=== PATIENT | male | born 1970 | race Caucasian/White ===

== ENCOUNTER → 2023-01-21 13:15 | Outpatient (CLI) | payer MEDICARE, SELFPAY ==
[2023-01-21 18:49] LABS: Basophils % 0.4 % (0.1-2.0); Eosinophils # 0.3 K/mm3 (0.0-0.4); Eosinophils % 3.7 % (0.1-12.0); Hematocrit 47.6 % (42.0-52.0); Hemoglobin 15.1 g/dL (14.1-18.0); Lymphocytes # 1.3 K/mm3 (0.7-4.5); Lymphocytes % 17.4 % (10-50); Mean Corpuscular HGB Conc 31.7 g/dL (31.8-35.4); Mean Corpuscular Hemoglobin 31.7 pg (27.0-31.2); Mean Platelet Volume 8.4 fl (7.4-10.4); Monocytes # 0.8 K/mm3 (0.1-1.0); Monocytes % 10.2 % (1.7-9.3); Neutrophils % 68.4 % (37.0-80.0); Platelet Count 264 K/mm3 (142-424); Red Blood Count 4.76 M/mm3 (4.60-6.20); Red Cell Distribution Width 15.6 % (11.5-17.5); White Blood Count 7.3 K/mm3 (4.8-10.8)
[2023-01-21 19:18] LABS: Iron 146 ug/dL (49-181)
[2023-01-21 19:19] LABS: Alanine Aminotransferase 18 U/L (12-78); Albumin Level 4.6 g/dl (3.5-5.0); Albumin/Globulin Ratio 1.4 (1.1-1.8); Alkaline Phosphatase 78 U/L (38-126); Anion Gap 13.8 mEq/L (5-15); Aspartate Amino Transferase 27 U/L (17-59); Bilirubin,Total 0.3 mg/dl (0.2-1.3); Blood Urea Nitrogen 9 mg/dl (9-20); Calcium 9.2 mg/dl (8.4-10.2); Carbon Dioxide 27 mmol/L (22.0-30.0); Chloride 100 mmol/L (98-107); Estimated Glomerular Filt Rate 79 ml/min (>60); GFR (African American) 95 ML/MIN (>60); Globulin 3.3 g/dL (1.3-3.2); Glucose 94 mg/dl (74-100); Potassium 5.8 mmoL/L (3.5-5.1); Sodium 135 mmol/L (136-145); Total Protein,Serum 7.9 g/dl (6.3-8.2)
[2023-01-21 19:23] LABS: Magnesium 1.8 mg/dl (1.6-2.3)
[2023-01-21 19:40] LABS: Troponin I < 0.01 ng/ml (0.00-0.034)
[2023-01-21 19:53] LABS: Ferritin 36.4 ng/ml (17.9-464)
[2023-01-21 20:06] LABS: Thyroid Stimulating Hormone 3.21 uIU/mL (0.465-4.68)
[2023-01-21 20:25] LABS: Vitamin B12 181 pg/mL (239-931)
[2023-01-21 20:27] LABS: Folate 4.34 ng/mL
[2023-01-21 20:53] LABS: Total Iron Binding Capacity 444 ug/dL (261-462)
[2023-01-21 21:27] LABS: Amphetamine/Metha Screen,Urine Negative ng/ml (<1000); Barbiturates Screen,Urine Negative ng/ml (<200)
[2023-01-21 21:28] LABS: Benzodiazepines Screen,Urine Negative ng/ml (<200)
[2023-01-21 21:29] LABS: Cannabinoid Screen,Urine Positive ng/ml (<50); Cocaine Screen,Urine Negative ng/ml (<300)
[2023-01-21 21:30] LABS: Methadone Screen,Urine Negative ng/ml (<300); Opiate Screen,Urine Negative ng/ml (<300)
[2023-01-21 21:31] LABS: Phencyclidine Screen,Urine Negative ng/ml (<25)
== END ==
PROVIDERS: Nurse Practitioner Family; PCP Nurse Practitioner Family; Visit Provider Nurse Practitioner Family
DX: R20.2 Paresthesia of skin (principal); E07.9 Disorder of thyroid, unspecified; M54.42 Lumbago with sciatica, left side; Z79.899 Other long term (current) drug therapy; R20.0 Anesthesia of skin; E53.8 Deficiency of other specified B group vitamins; R07.9 Chest pain, unspecified
CPT/HCPCS: 80053; 80305; 82607; 82728; 82746; 83540; 83550; 83735; 84443; 84484; 85025

== ENCOUNTER → 2023-01-23 09:05 | Outpatient (CLI) | payer MEDICARE, SELFPAY ==
[2023-01-23 09:24] LABS: Chloride 98 mmol/L (98-107); Potassium 4.9 mmoL/L (3.5-5.1); Sodium 132 mmol/L (136-145)
[2023-01-23 09:27] LABS: Blood Urea Nitrogen 14 mg/dl (9-20); Estimated Glomerular Filt Rate 119 ml/min (>60); GFR (African American) 144 ML/MIN (>60)
[2023-01-23 09:28] LABS: Anion Gap 10.9 mEq/L (5-15); Carbon Dioxide 28 mmol/L (22.0-30.0); Glucose 111 mg/dl (74-100)
== END ==
PROVIDERS: PCP Family Medicine; Visit Provider Nurse Practitioner Family
DX: E87.5 Hyperkalemia (principal)
CPT/HCPCS: 36415; 80048

== ENCOUNTER 2023-02-21 13:25 | Emergency (ER) | payer MEDICARE, SELFPAY ==
[2023-02-21 13:27] VITALS: BP 146/91; PULSE 91; RESP 18; TEMP 36.7; O2SAT 98; BMI 25.1
--- NOTE | 2023-02-21 13:50 | HMH.EDGENADL ---
Discharge Plan Disposition Patient Disposition: Home, Self-Care Prescriptions Prescriptions: New methocarbamol 750 mg tablet 750 mg PO TID 7 Days Qty: 21 0RF prednisone 50 mg tablet 50 mg PO DAILY 5 Days Qty: 5 0RF Rx Instructions: Please begin 1 day after ED visit No Action famotidine [Pepcid] 20 mg tablet 20 mg PO BID celecoxib [Celebrex] 50 mg capsule 50 mg PO BID Qty: 60 2RF propranolol 20 mg tablet 40 mg PO BID PRN (Reason: anxiety) Qty: 120 2RF Rx Instructions: take 1-2 tablets as needed for anxiety pantoprazole [Protonix] 40 mg tablet,delayed release (DR/EC) 40 mg PO BID Qty: 60 4RF Combivent Respimat 20-100 mcg/actuation mist 1 puff inhalation Q4H 30 Days Qty: 4 2RF promethazine 25 mg tablet 25 mg PO HS PRN cyclobenzaprine 10 mg tablet 10 mg PO TID Qty: 90 2RF cyanocobalamin (vitamin B-12) 1,000 mcg/mL solution 1,000 mcg IM WEEKLY 30 Days Qty: 5 2RF Referrals Follow up/Referrals: Juan Chin MD [Staff Physician] - See instructions Samson Witt MD [Primary Care Provider] - See instructions Activity Restrictions/Add. Instructions Additional Instructions/Restrictions: Return with any lower extremity paralysis, urinary or bowel incontinence, urinary retention, numbness between your legs, fevers or other concerns. Follow-up with Dr. Chin regarding chronic pain control. Clinical Impressions Clinical Impression: Chronic low back pain with left-sided sciatica Instructions Patient Instructions: DI for Low Back Pain Discharge ED Provider: Jocelyn Ferrer General Adult HPI General Chief complaint: Back Pain/Injury Stated complaint: back spasms, no accident Time Seen by Provider: 02/21/23 13:36 Mode of Arrival: Ambulatory Source of Information: Patient Limitations: Physical Limitations Description of Symptoms (Recalled from ER Triage Doc. by RN): PT has chronic back pain issues and has had spine surgery over ten years ago, pt states he has been suffering with back spasms x1 week. saw pcp on friday and was given toradol shot and script for flexeril and patient states that has not helped at all. pt is currently seeing neuro and suppose to have some upcoming testing done History of Present Illness HPI narrative: Patient is a 53-year-old male present to the emergency department with acute on chronic lower back pain. has been having the symptoms for the last 19 years had a laminectomy of his lower spine around that time when this first began he intermittently has been having symptoms since that time. States over the last week he is having localized left lower back pain with an electrical sensation around his left buttock area does not radiate all the way down his leg. He specifically states he does not have any history of any urinary or bowel incontinence, urinary retention, lower extremity weakness, saddle anesthesia, history of injection drug use, fever, history of cancer. has been taking [id number] medications at home without any significant improvement also has been taking Flexeril without improvement. States his biggest concern today is just to make sure he is not can have something this can progress to paralysis. Related Data Home Medications Medication Instructions Recorded Confirmed famotidine 20 mg tablet (Pepcid) 20 mg PO BID 12/12/22 02/19/23 promethazine 25 mg tablet 25 mg PO HS PRN 02/19/23 02/19/23 Previous Rx's Medication Instructions Recorded celecoxib 50 mg capsule (Celebrex) 50 mg PO BID #60 caps 12/12/22 pantoprazole 40 mg tablet,delayed 40 mg PO BID #60 tabs 12/23/22 release (Protonix) ipratropium 20 mcg-albuterol 100 1 puff inhalation Q4H 30 days #4 01/02/23 mcg/actuation mist for inhalation grams (Combivent Respimat) propranolol 20 mg tablet 40 mg PO BID PRN anxiety #120 tabs 01/21/23 cyanocobalamin (vitamin B-12) 1,000 mcg IM WEEKLY 30 days #5 mL 02/19/23 1,000 mcg/mL injection solution c
[2023-02-21 13:53] VITALS: BP 146/91; PULSE 91; RESP 18; TEMP 36.7; O2SAT 98
== END 2023-02-21 13:54 | disposition home or self-care (01) ==
PROVIDERS: Emergency Provider Student in an Organized Health Care Education/Training Program; PCP Family Medicine
DX: M54.42 Lumbago with sciatica, left side (principal); G89.29 Other chronic pain; J44.9 Chronic obstructive pulmonary disease, unspecified
CPT/HCPCS: 99283

== ENCOUNTER → 2023-04-01 13:42 | Outpatient (CLI) | payer MEDICARE, SELFPAY ==
--- NOTE | 2023-04-01 13:46 | XR_ITS ---
FINAL REPORT CLINICAL HISTORY: leg pain, previous back surgery FINDINGS: The vertebrae are normal height. Alignment is within normal limits. There are mild degenerative changes with osteophytes. There is straightening of the normal lumbar lordosis. Prevertebral soft tissues are unremarkable. There is no abnormal movement with flexion or extension. IMPRESSION: No acute process. Reviewed, Interpreted and Dictated by Jose Blanca III, MD Transcribed by Derrell Arteaga Authenticated and [facility]
== END ==
LOC: RAD 13:43
PROVIDERS: PCP Family Medicine; Visit Provider Nurse Practitioner Family
DX: G89.29 Other chronic pain (principal); M54.42 Lumbago with sciatica, left side; R20.0 Anesthesia of skin; R20.2 Paresthesia of skin; Z98.890 Other specified postprocedural states
CPT/HCPCS: 72114

== ENCOUNTER → 2023-04-10 09:44 | Outpatient (CLI) | payer MEDICARE, SELFPAY ==
--- NOTE | 2023-04-10 09:44 | MR_ITS ---
FINAL REPORT CLINICAL HISTORY: lumbar spine pain, nki. chronic pain. COMPARISON: None FINDINGS: Multiplanar MR imaging of the lumbar spine was performed without and with contrast. On the sagittal T2-weighted images, disc degeneration is seen at several levels. The vertebral alignment is normal. There are Schmorl's nodes seen at several levels. There is no evidence of fracture. The conus is seen at approximately the L1 level and has an unremarkable appearance. L1-2: No significant canal stenosis or neuroforaminal narrowing is seen. L2-3: An annular bulge is present. No significant canal stenosis or neuroforaminal narrowing is seen. L3-4: An annular bulge is present. No significant canal stenosis or neuroforaminal narrowing is seen. L4-5: An annular bulge is present. Left foraminal disc protrusion. Mild right and moderate left neural foraminal narrowing. Left L5 nerve root impingement. L5-S1: Left paracentral annular tear and disc protrusion contacts the left S1 nerve root. Mild left neural foraminal narrowing. There is contrast enhancement of the left posterior disc at L5-S1 consistent with annular tear. No other contrast enhancement seen. IMPRESSION: Multilevel mild degenerative disc disease and spondylosis with areas of neural foraminal narrowing as described. Disc protrusions at L4-5 and L5-S1. Reviewed, Interpreted and Dictated by Jose Blanca III, MD Transcribed by Pascale Li Authenticated and [facility]
== END ==
LOC: RAD 09:44
PROVIDERS: PCP Family Medicine; Visit Provider Nurse Practitioner Family
DX: G89.29 Other chronic pain (principal); M54.42 Lumbago with sciatica, left side
CPT/HCPCS: 72158; 76376; A9576